=== PATIENT | male | born 1990 | race Caucasian/White ===

== ENCOUNTER 2023-03-10 09:05 | Emergency (ER) | payer SELFPAY | END 2023-03-10 11:13 | disposition home or self-care (01) | LOC: FB.ED 09:05 | DX: S62.647A Nondisplaced fracture of proximal phalanx of left little finger, initial encounter for closed fracture (principal); Z88.8 Allergy status to other drugs, medicaments and biological substances | CPT/HCPCS: 73130-LT; 99283 ==